=== PATIENT | male | born 1965 | race Caucasian/White ===

== ENCOUNTER 2020-02-29 15:13 | Emergency (ER) | payer BC | END 2020-02-29 16:20 | disposition home or self-care (01) | LOC: JVIRT 15:13 | DX: Z11.52 Encounter for screening for COVID-19 (principal) | CPT/HCPCS: C9803; Q3014-GT; U0003 ==

== ENCOUNTER 2020-03-11 10:26 | Emergency (ER) | payer BC | END 2020-03-11 10:43 | disposition home or self-care (01) | LOC: JVIRT 10:26 | DX: Z20.822 Contact with and (suspected) exposure to COVID-19 (principal) | CPT/HCPCS: C9803; G2012-GT; U0003 ==

== ENCOUNTER 2020-04-15 12:06 | Emergency (ER) | payer BC | END 2020-04-15 12:54 | disposition home or self-care (01) | LOC: JVIRT 12:06 | DX: Z20.822 Contact with and (suspected) exposure to COVID-19 (principal) | CPT/HCPCS: C9803; G2251-GT; U0003 ==